=== PATIENT | male | born 1995 | race Caucasian/White ===

== ENCOUNTER 2025-09-14 10:59 | Emergency (ER) | payer OTHER ==
[~2025-09-14] VITALS: Ht 182.9 cm; Wt 83.2 kg
[2025-09-14 14:42] VITALS: BP 140/95
== END 2025-09-14 14:30 | disposition home or self-care (01) ==
LOC: ED 10:59
DX: S60.222A Contusion of left hand, initial encounter (principal); M25.532 Pain in left wrist; Y08.89XA Assault by other specified means, initial encounter
CPT/HCPCS: 73110; 73130; 99283